=== PATIENT | male | born 1980 | race African-American/Black ===

== ENCOUNTER 2017-03-26 14:33 | Emergency (ER) | payer SELFPAY ==
[~2017-03-26] VITALS: Ht 188 cm; Wt 170.0 kg
[2017-03-26 14:55] VITALS: BP 125/76
[2017-03-26] MEDS ORDERED: HYDROCODONE/ACETAMINOPHEN 5-325 MG TABLET PO ONE (15:15)
[2017-03-26] MEDS ORDERED: PENICILLIN V POTASSIUM 500 MG TABLET PO ONE (15:15)
== END 2017-03-26 15:12 | disposition home or self-care (01) ==
LOC: EMS 14:35
DX: K08.89 Other specified disorders of teeth and supporting structures (principal); F17.210 Nicotine dependence, cigarettes, uncomplicated; I20.9 Angina pectoris, unspecified; F12.90 Cannabis use, unspecified, uncomplicated
CPT/HCPCS: 99283; 99406